=== PATIENT | male | born 1990 ===

== ENCOUNTER 2024-02-04 05:38 | Emergency (ER) | payer BC ==
[2024-02-04] MEDS: Methocarbamol 750 MG Tab PO STA (06:06)
[2024-02-04] MEDS: Sucralfate Suspension 1 GM/10 ML Cup PO ONE (06:06)
[2024-02-04] MEDS: Sodium Chloride 0.9% 10 ML Syringe FLUSH PRN (06:07)
[2024-02-04] MEDS: Lidocaine 4% 1 each Patch TOP ONE (06:07)
[2024-02-04] MEDS: Famotidine 20 MG/2 ML SDV IVPUSH ONE (06:07)
[2024-02-04] MEDS: Sodium Chloride 0.9% 2.5 ML Syringe FLUSH PRN (06:08)
[2024-02-04 06:10] LABS: BASOPHILS ABSOLUTE AUTO 0.03 K/uL (0.00-0.20); BASOPHILS PERCENT AUTO 0.2 % (0.0-1.0); EOSINOPHILS PERCENT AUTO 1.6 % (0.0-6.0); HEMOGLOBIN 15.3 g/dL (14.0-18.0); IMMATURE GRAN ABSOLUTE AUTO 0.05 K/uL (0.00-0.05); IMMATURE GRAN PERCENT AUTO 0.4 % (0.0-0.4); LYMPHOCYTES ABSOLUTE AUTO 2.29 K/uL (1.00-4.80); LYMPHOCYTES PERCENT AUTO 18.7 % (24.0-44.0); MEAN CORPUSCULAR HEMOGLOBIN 29.1 pg (28.0-32.0); MEAN CORPUSCULAR VOLUME 85.7 fL (83.0-99.0); MEAN PLATELET VOLUME 10.1 fL (9.4-12.4); MONOCYTES ABSOLUTE AUTO 0.76 K/uL (0.00-0.80); MONOCYTES PERCENT AUTO 6.2 % (0.0-8.0); NEUTROPHILS ABSOLUTE AUTO 8.89 K/uL (1.80-7.70); NEUTROPHILS PERCENT AUTO 72.9 % (41.0-71.0); PLATELET COUNT,PLT 275 K/uL (150-400); RED BLOOD CELL COUNT 5.25 M/uL (4.52-5.90); WHITE BLOOD CELL COUNT,WBC 12.22 K/uL (3.9-11.3)
[2024-02-04] MEDS: Albuterol/Ipratropium 3.0-0.5 MG/3 ML Neb Soln NEB ONE (06:25)
[2024-02-04 06:32] LABS: A/G RATIO 0.9 (0.9-1.6); ALBUMIN 3.3 g/dL (3.4-5.0); BILIRUBIN TOTAL 0.2 mg/dL (0.2-1.0); CALCIUM 8.1 mg/dL (8.5-10.1); CARBON DIOXIDE,CO2 24.8 mmol/L (21.0-32.0); EST CRCL DRUG DOSING (CG) 111.9 mL/min; POTASSIUM,K 3.5 mmol/L (3.5-5.1); PROTEIN TOTAL,TP 7.1 g/dL (6.4-8.2)
[2024-02-04] MEDS: Ketorolac 30 MG/ML SDV IVPUSH ONE (06:47)
== END 2024-02-04 08:44 | disposition home or self-care (01) ==
LOC: MW.ED 05:38
DX: R07.89 Other chest pain (principal); F17.210 Nicotine dependence, cigarettes, uncomplicated; I10 Essential (primary) hypertension; Z75.8 Other problems related to medical facilities and other health care
CPT/HCPCS: 36415; 71046; 80053; 83690; 84484; 85025; 85379; 93005; 96374; 96375; 99285; A9270; J1885; J3490; 93010; 99284; J7620-GY